=== PATIENT | female | born 1960 | race Native Hawaiian/Other Pacific Islander ===

== ENCOUNTER 2022-01-27 15:24 | Emergency (ER) | payer OTHER ==
[~2022-01-27] VITALS: Ht 165.1 cm; Wt 85.3 kg
[2022-01-27 16:19] LABS: PLATELET COUNT 378 K/uL (152-353)
[2022-01-27 16:25] LABS: POTASSIUM 3.1 mmol/L (3.6-5.2)
[2022-01-27 20:10] VITALS: BP 172/98; TEMP 98
[2022-01-27] MEDS ORDERED: [UNRECOGNIZED DRUG - OTHER] SC (21:53)
[2022-01-27] MEDS ORDERED: BACLOFEN10 MG PO (21:55)
[2022-01-27] MEDS ORDERED: MONTELUKAST SOD10 MG PO (21:56)
[2022-01-27] MEDS ORDERED: PANTOPRAZOLE SO40 M1 PO (21:56)
[2022-01-27] MEDS ORDERED: EUTHYROX88 MCG PO (21:57)
[2022-01-27] MEDS ORDERED: PIOGLITAZONE HY15 MG PO (21:59)
[2022-01-27] MEDS ORDERED: FOLI1TAB26 PO (22:00)
[2022-01-27] MEDS ORDERED: TRICOR145 M1 PO (22:02)
[2022-01-27] MEDS ORDERED: CARV12.5 PO (22:02)
[2022-01-27] MEDS ORDERED: LIPITOR20 MG PO (22:04)
[2022-01-27] MEDS ORDERED: TRAZODONE HYDR100 MG PO (22:04)
[2022-01-27] MEDS ORDERED: DULOXETINE HYDR60 MG PO (22:08)
[2022-01-27] MEDS ORDERED: DULOXETINE HYDR30 MG PO (22:08)
[2022-01-27] MEDS ORDERED: ASPIRIN/ENTERIC81 MG PO (22:10)
[2022-01-27] MEDS ORDERED: MAGNESIUM250 M2 PO (22:11)
[2022-01-27] MEDS ORDERED: VASCEPA1 GM PO (22:12)
[2022-01-27] MEDS ORDERED: D-10001000 UNIT PO (22:12)
[2022-01-27] MEDS ORDERED: VITAMIN C PO (22:14)
[2022-01-27] MEDS ORDERED: MIRALAX17 GM PO (22:16)
[2022-01-27] MEDS ORDERED: MUCINEX DM1 TAB PO (22:16)
[2022-01-27] MEDS ORDERED: HYDR5TAB9 PO (22:20)
[2022-01-27] MEDS ORDERED: ALBUTEROL0.083 % IN (22:21)
[2022-01-27] MEDS ORDERED: IPRASOL5 IN (22:22)
[2022-01-27] MEDS ORDERED: SUPER B COM1 PO (22:23)
[2022-01-27] MEDS ORDERED: HYDR50CA21 PO (22:24)
== END 2022-01-27 20:10 | disposition still patient (30) ==
LOC: ED 15:24
PROVIDERS: Hospitalist
DX: F25.8 Other schizoaffective disorders (principal); F22 Delusional disorders; F03.91 Unspecified dementia, unspecified severity, with behavioral disturbance; Z11.52 Encounter for screening for COVID-19
CPT/HCPCS: 80053; 80143; 80179; 80307; 80320; 81002; 85027; 87635; 93005; 99285; U0003

== ENCOUNTER 2022-01-31 20:31 | Inpatient (IN) | payer OTHER ==
[~2022-01-31] VITALS: Ht 160 cm; Wt 77.4 kg
[~2022-01-31 20:31] MED LIST: ALBUTEROL0.083 % IN; ASPIRIN/ENTERIC81 MG PO; BACLOFEN10 MG PO; CARV12.5 PO; D-10001000 UNIT PO; DULOXETINE HYDR30 MG PO; DULOXETINE HYDR60 MG PO; EUTHYROX88 MCG PO; FOLI1TAB26 PO; HYDR50CA21 PO; HYDR5TAB9 PO; IPRASOL5 IN; LIPITOR20 MG PO; MAGNESIUM250 M2 PO; MIRALAX17 GM PO; MONTELUKAST SOD10 MG PO; MUCINEX DM1 TAB PO; PANTOPRAZOLE SO40 M1 PO; PIOGLITAZONE HY15 MG PO; SUPER B COM1 PO; TRAZODONE HYDR100 MG PO; TRICOR145 M1 PO; VASCEPA1 GM PO; VITAMIN C PO; [UNRECOGNIZED DRUG - OTHER] SC
[2022-01-31 20:35] VITALS: BP 191/101; TEMP 99.8
[2022-01-31 21:08] LABS: PLATELET COUNT 366 K/uL (152-353)
[2022-01-31 21:10] LABS: POTASSIUM 3.3 mmol/L (3.6-5.2)
[2022-01-31 21:23] LABS: PARTIAL THROMBOPLASTIN TIME 24.7 SECONDS (24.5-33.6)
[2022-02-01 03:50] VITALS: BP 189/86; TEMP 98; Ht 160 cm; Wt 77.4 kg
[2022-02-01 04:00] VITALS: BP 151/61; BP 154/75; TEMP 98.6
[2022-02-01 08:00] VITALS: BP 168/71; TEMP 98.7
[2022-02-01 12:00] VITALS: BP 171/98; TEMP 99
[2022-02-01 16:16] VITALS: BP 140/86; TEMP 98.4
[2022-02-01 20:00] VITALS: BP 194/108; TEMP 98.9
[2022-02-02] VITALS: BP 147/92; TEMP 99.2
[2022-02-02 04:00] VITALS: BP 180/100; TEMP 98.2
[2022-02-02 05:01] LABS: PLATELET COUNT 335 K/uL (152-353)
[2022-02-02 05:16] LABS: POTASSIUM 3.5 mmol/L (3.6-5.2)
[2022-02-02 08:00] VITALS: BP 183/93; TEMP 98.6
[2022-02-02 12:00] VITALS: BP 158/88; TEMP 97.4
[2022-02-02 18:00] VITALS: BP 145/98; TEMP 98.4
[2022-02-03 04:00] VITALS: BP 143/93; TEMP 98.9
[2022-02-03 08:00] VITALS: BP 178/80; TEMP 97.8
[2022-02-03] MEDS ORDERED: CIPR500T PO ×2 (09:18→10:42)
[2022-02-03] MEDS ORDERED: ZYPREXA ZYDI5 MG PO (11:13)
[2022-02-03] MEDS ORDERED: SERT50TA PO (11:13)
[2022-02-03 12:00] VITALS: BP 121/77; TEMP 97.5
== END 2022-02-03 13:49 | disposition home or self-care (01) | DRG 690 ==
LOC: ED 20:31 → MED/SURG 22:22
PROVIDERS: ADMIT Emergency Medicine; ATTEND Internal Medicine
DX: N39.0 Urinary tract infection, site not specified (principal); F02.81 Dementia in other diseases classified elsewhere, unspecified severity, with behavioral disturbance; F25.1 Schizoaffective disorder, depressive type; F22 Delusional disorders; K21.9 Gastro-esophageal reflux disease without esophagitis; J44.9 Chronic obstructive pulmonary disease, unspecified; M13.80 Other specified arthritis, unspecified site; E03.8 Other specified hypothyroidism; I25.10 Atherosclerotic heart disease of native coronary artery without angina pectoris; I73.89 Other specified peripheral vascular diseases; I10 Essential (primary) hypertension; B96.89 Other specified bacterial agents as the cause of diseases classified elsewhere; E11.65 Type 2 diabetes mellitus with hyperglycemia
CPT/HCPCS: 36415; 80053; 82550; 83605; 83880; 84484; 85027; 85610; 85730; 87040; 87635; 93005; 96365; 99284; J0360; J0696; J2060; J7120; U0003